=== PATIENT | female | born 1950 | race Caucasian/White ===

== ENCOUNTER → 2018-02-09 13:42 | Outpatient (CLI) | payer MEDICARE, OTHER, SELFPAY ==
--- NOTE | 2018-02-09 13:52 | BI_ITS ---
MAMMOGRAPHY - UNILATERAL DIAGNOSTIC: RIGHT BREAST REASON FOR EXAM: Female, 67 years old. Abnormal screening mammogram from outside institution. PERTINENT HISTORY: Personal history of breast cancer. Prior left lumpectomy and radiation therapy. TECHNIQUE: Digital unilateral breast lilbieth (3D mammographic acquisition) in the CC and MLO projections. 2-D mediolateral oblique (MLO) and craniocaudad (CC) views of both breasts were obtained. Exaggerated craniocaudad view as well as 90 degree lateral views were obtained. CAD: Full Field Digital Mammography with Computer Added Detection was performed. COMPARISON: Comparison is made with prior outside examination dated February 05, 2018. FINDINGS: Breast Composition: There are scattered areas of fibroglandular density. There are no dominant masses or suspicious calcifications. No suspicious abnormality is seen. No other significant abnormalities are identified. There has been no significant change since the prior study. BI/DIAG MAMM W/CAD, UNILAT IMPRESSION: Stable unilateral diagnostic mammogram. One year follow-up mammogram recommended. (A) ASSESSMENT CATEGORY: BIRADS Category 2: Benign. A letter regarding these results will be sent to the patient by the facility within 30 days. Approximately 10% of breast cancers are not detected by mammography. A normal mammogram should not delay biopsy of a clinically suspicious abnormality. Electronically Signed: Teofilo Shelton MD at 8:27 EDT Tel [phone], Service support ,
--- NOTE | 2018-02-09 13:52 | US_ITS ---
STUDY: ULTRASOUND BREAST - RIGHT REASON FOR EXAM: Female, 67 years old. Abnormal screening mammogram. TECHNIQUE: Axial and longitudinal images of the RIGHT breast were performed with a high resolution ultrasound transducer. COMPARISON: Comparison is made with prior mammogram done earlier in the day. FINDINGS: RIGHT Breast: The inferior half of the right breast was examined by ultrasound. There is mild dilatation of the retroareolar ducts. No solid or cystic mass lesion is seen. US/Breast Limited Unilateral IMPRESSION: Mildly dilated retroareolar ducts. ASSESSMENT CATEGORY: BIRADS Category 2: Benign. A letter regarding these results will be sent to the patient by the facility within 30 days. Electronically Signed: Teofilo Shelton MD at 8:17 EDT Tel [phone], Service support ,
== END ==
PROVIDERS: Family Provider Student in an Organized Health Care Education/Training Program; PCP Student in an Organized Health Care Education/Training Program; Visit Provider Nurse Practitioner
DX: C50.912 Malignant neoplasm of unspecified site of left female breast (principal)
CPT/HCPCS: 76642; 77061; 77065; G0279

== ENCOUNTER 2018-10-21 15:05 | Emergency (ER) | payer MEDICARE, OTHER, SELFPAY ==
[2018-10-21 15:08] VITALS: BP 139/91; PULSE 73; RESP 18; TEMP 36.6; O2SAT 95; BMI 32.8
--- NOTE | 2018-10-21 15:26 | CT_ITS ---
STUDY: CT BRAIN WITHOUT CONTRAST REASON FOR EXAM: Female, 68 years old. RADIATION DOSAGE (If Supplied By Facility): CTDIvol = ( 44.99 ) mGy, DLP = ( 762.36 ) mGycm TECHNIQUE: Transaxial CT imaging of the brain was performed without administration of intravenous contrast material. Individualized dose optimization techniques were used for this CT. COMPARISON: No relevant priors. FINDINGS: Normal soft tissue structures. Hyperostosis frontalis interna is noted. Normal size ventricles and extra-axial spaces for the patient's age. Normal white matter tracts of the cerebral hemispheres. Normal basal ganglia and thalami. Normal brainstem. Normal cerebellum. There is no intracranial hemorrhage. There are no findings of an acute ischemic infarction. Minimal residual thickening involving the posterior aspect of the left maxillary sinus CT/Brain/Head without Contrast IMPRESSION: Normal unenhanced CT scan of the brain. Electronically Signed: Tere Soria, at 15:57 EDT Tel , Service support ,
[2018-10-21] MEDS: Meclizine HCl 25 MG Tablet PO (15:30)
--- NOTE | 2018-10-21 15:35 | ED.DCSUM_ITS ---
- ER Visit Summary Date of Service: 10/21/18 Chief Complaint: Dizziness History of Present Illness: The patient is a 68 F with dizziness. This started suddenly yesterday when she woke up. It feels like the room is spinning. Worse with movement and better with rest. Associated with nausea. She also says her right ear hurts and she has ringing in her ears. Symptoms got better throughout the day and then recurred again today. The patient has a history of vertigo. Her last episode was 2 or 3 weeks ago and it lasted for 2 to 3 days. Patient had a mild headache and took some ibuprofen. No other medications. No other associated symptoms like visual changes, facial droop, speech changes, weakness. No trauma. Patient has a history of breast cancer and is in remission. Physical Examination: Afebrile and vital signs unremarkable. Patient alert and oriented. No acute distress. HEENT exam unremarkable. Head is atraumatic. Neck is nontender with good range of motion. Heart regular. Lungs clear. Cranial nerves grossly intact. Normal strength and sensation. Normal cerebellar testing. No nystagmus. Skin normal. Test Results: CT brain pending. Emergency Department Course and Treatment: Patient presents with vertigo. Symptoms are consistent with a peripheral etiology. Patient was treated with meclizine. Because of her age and history of breast cancer I will check a CT brain. CT was normal. On reevaluation, vertigo had resolved. Patient ambulated without issue. Will prescribe a short course of meclizine. Follow-up with ENT. Return for any new or worsening issues. Return for signs of stroke. Treatment Plan: As above Disposition: Discharge Impression: 1. Vertigo This note was generated with [email or web address] dictation software. It may contain incorrect words, spelling, and punctuation that were not noted in review of the chart prior to signing ED Disposition - Plan for ED Patient: Referrals: Keaton Cole DO [Primary Care Provider] -
--- NOTE | 2018-10-21 16:13 | ED.DEP ---
ED Disposition - Plan for ED Patient: Instructions: VERTIGO, Unspecified Prescriptions: Meclizine HCl 25 mg PO TID PRN PRN #20 tab PRN Reason: Vertigo Prescription Printed Referrals: Reinier Villar MD [STAFF PHYSICIAN] -
== END 2018-10-21 16:32 | disposition home or self-care (01) ==
LOC: ED 15:39
PROVIDERS: Emergency Provider Emergency Medicine; Family Provider Student in an Organized Health Care Education/Training Program; PCP Student in an Organized Health Care Education/Training Program
DX: R42 Dizziness and giddiness (principal)
CPT/HCPCS: 70450; 99283

== ENCOUNTER 2021-05-01 05:48 | Day surgery (SDC) | payer MEDICARE, OTHER, SELFPAY ==
[2021-05-01] VITALS (16 sets, daily range): BP systolic 55–126; BP diastolic 45–83; PULSE 61–85; RESP 16–18; TEMP 35.9–36.4; O2SAT 89–100; BMI 26.6
--- NOTE | 2021-05-01 06:24 | PCM.HP.STD ---
HPI - General HPI Narrative JET TORRE, is a 70 F who presents for screening colonoscopy. Her previous one was approximately 13 years ago. She is asymptomatic. No abdominal pain. No bright red blood per rectum. No melena. She has some intentional weight loss. Nothing unexpected. She has not experienced COVID-19. She has been vaccinated. She was able to successfully take the bowel preparation [facility] Medical History (Updated 04/25/21 @ 10:53 by Meryl Neely) Arthritis Back pain Cancer Costochondritis History of breast cancer Migraine headache Non-smoker Wears glasses Home Medications celecoxib 200 mg PO DAILY 09/05/14 [History Last Taken Unknown] cholecalciferol (vitamin D3) 2,000 unit PO DAILY 09/05/14 [History Last Taken Unknown] multivitamin with folic acid 1 tab PO DAILY 09/05/14 [History Last Taken Unknown] meclizine 25 mg PO TID PRN PRN #20 tab 10/21/18 [Rx Last Taken Unknown] calcium carbonate 500 mg calcium (1,250 mg) tablet 500 mg PO DAILY 10/08/19 [History Last Taken Unknown] omega-3 fatty acids 1,000 mg capsule 1,000 mg PO DAILY 10/08/19 [History Last Taken Unknown] turmeric 400 mg capsule 400 mg PO DAILY 10/08/19 [History Last Taken Unknown] aspirin [Aspir-81] 81 mg PO DAILY 04/25/21 [History Last Taken Unknown] Allergy/AdvReac Type Severity Reaction Status Date / Time amitriptyline Allergy Other Verified 05/01/21 06:23 anastrozole Allergy Other Verified 05/01/21 06:23 duloxetine Allergy Other Verified 05/01/21 06:23 gabapentin Allergy Other Verified 05/01/21 06:23 letrozole Allergy Other Verified 05/01/21 06:23 Family History Mother Cancer ovarian Surgical History S/P appendectomy S/P tonsillectomy Status post left breast lumpectomy Social History (Updated 10/08/19 @ 13:[address] Bernabe Burden MD) Smoking Status: Never smoker alcohol intake: never ROS Constitutional Constitutional: Reports systems reviewed and no addt'l complaints, except as documented Cardiovascular Cardiovascular: Denies chest pain Respiratory/Chest Respiratory/Chest: Denies shortness of breath at rest Gastrointestinal Gastrointestinal: Denies abdominal pain, change in bowel habits, hematochezia or melena Physical Exam Const alert, oriented x3 and no apparent distress General Appearance: cooperative and comfortable Eyes General Eye: normal appearance of both eyes Neck General: normal visual inspection Chest inspection of chest normal Resp Effort and Inspection: able to speak in complete sentences and symmetric chest movement Auscultation: clear to auscultation bilaterally Cardio regular rate and regular rhythm GI soft to palpation, non-tender and non-distended Extremity no calf tenderness Neuro oriented x3 Psych thought process normal Assessment & Plan Assessment/Plan (1) Encounter for screening for malignant neoplasm of colon: PLAN: The patient presents for screening colonoscopy today with possible biopsy or polypectomy as indicated. She presents via open access today. She is aware of the technique, benefit, risk, alternatives. She has had an opportunity to ask and have questions answered. We will proceed as noted. Bernabe Burden M.D., F.A.C.S.
[2021-05-01] MEDS: Lactated Ringers 1,000 ML 15 ML IV ×2 (06:29→07:25)
[2021-05-01] MEDS: Midazolam 5 MG/ML Syringe (06:36)
--- NOTE | 2021-05-01 07:05 | OP.CCLET_ITS ---
05/01/2021 Keaton Cole [address] [phone] Re : Colonoscopy procedure for Ne Torres Dear Dr. Cole This procedure was performed on Saturday, May 01, 2021. My impressions and recommendations are as follows: Impressions : - Non-thrombosed external hemorrhoids, non-thrombosed internal hemorrhoids and internal hemorrhoids that prolapse with straining, but spontaneously regress to the resting position (Grade II) found on digital rectal exam. - Diverticulosis in the sigmoid colon. - Tortuous colon. - No specimens collected. Recommendations : - Discharge patient to home. - Resume previous diet. - Continue present medications. - Repeat colonoscopy in 10 years for screening purposes. My findings are described in the full procedure note, which is enclosed. If I can be of further assistance, please feel free to contact me at Doctor phone number(s): Work: . Sincerely, Bernabe Burden MD 05/01/2021 7:04:34 AM This report has been signed electronically.
--- NOTE | 2021-05-01 07:05 | OP.COLON_ITS ---
Patient Name: Ne Torres Procedure Date: 05/01/2021 6:33 AM Date of : 1950 Age: 70 Procedure: Colonoscopy Indications: Screening for colorectal malignant neoplasm Providers: Bernabe Burden MD Medicines: Meperidine 100 mg IV, Midazolam 3 mg IV Patient Profile: Last Colonoscopy: more than 10 years ago. Complications: No immediate complications. Procedure: Pre-Anesthesia Assessment: - Prior to the procedure, a History and Physical was performed, and patient medications and allergies were reviewed. The patient's tolerance of previous anesthesia was also reviewed. The risks and benefits of the procedure and the sedation options and risks were discussed with the patient. All questions were answered, and informed consent was obtained. Prior Anticoagulants: The patient has taken aspirin, last dose was day of procedure. ASA Grade Assessment: II - A patient with mild systemic disease. After reviewing the risks and benefits, the patient was deemed in satisfactory condition to undergo the procedure. After I obtained informed consent, the scope was passed under direct vision. Throughout the procedure, the patient's blood pressure, pulse, and oxygen saturations were monitored continuously. The colonoscope was introduced through the anus and advanced to the cecum, identified by appendiceal orifice and ileocecal valve. The colonoscopy was performed without difficulty. The patient tolerated the procedure well. The quality of the bowel preparation was good. The ileocecal valve and the appendiceal orifice were photographed. Moderate Sedation: Moderate (conscious) sedation was personally administered by the endoscopist. The following parameters were monitored: oxygen saturation, heart rate, blood pressure, and response to care. Total physician intraservice time was 15 minutes. Scope In: 6:46:29 AM Scope Withdrawal Time 0 hours 7 minutes 49 seconds Scope Out: 6:59:52 AM Total Procedure Duration Time 0 hours 13 minutes 23 seconds Findings: The digital rectal exam findings include non-thrombosed external hemorrhoids, non-thrombosed internal hemorrhoids and internal hemorrhoids that prolapse with straining, but spontaneously regress to the resting position (Grade II). Multiple diverticula were found in the sigmoid colon. The left colon was moderately tortuous. Advancing the scope required applying abdominal pressure. Impression: - Non-thrombosed external hemorrhoids, non-thrombosed internal hemorrhoids and internal hemorrhoids that prolapse with straining, but spontaneously regress to the resting position (Grade II) found on digital rectal exam. - Diverticulosis in the sigmoid colon. - Tortuous colon. - No specimens collected. Recommendation: - Discharge patient to home. - Resume previous diet. - Continue present medications. - Repeat colonoscopy in 10 years for screening purposes. Procedure Code(s): --- Professional --- 26257, Colonoscopy, flexible; diagnostic, including collection of specimen(s) by brushing or washing, when performed (separate procedure) 93056, 59, Moderate sedation services provided by the same physician or other qualified health childcare administrator performing the diagnostic or therapeutic service that the sedation supports, requiring the presence of an independent trained observer to assist in the monitoring of the patient's level of consciousness and physiological status; initial 15 minutes of intraservice time, patient age 5 years or older Diagnosis Code(s): --- Professional --- Z12.11, Encounter for screening for malignant neoplasm of colon K64.1, Second degree hemorrhoids K64.4, Residual hemorrhoidal skin tags K57.30, Diverticulosis of large intestine without perforation or abscess without bleeding Q43.8, Other specified congenital malformations of intestine CPT copyright 2017 [employer]. All rights reserved. The codes documented in this report are preliminary and upon center maker hand review may be revised to meet current compliance requirements. Bernabe Burden MD 05/01/2021 7:04:34 AM This report has been signed electronically. Number of Addenda: 0 Note Initiated On: 05/01/2021 6:33 AM
== END 2021-05-01 23:59 | disposition home or self-care (01) ==
LOC: EN 05:49 → AC 05:51
PROVIDERS: PCP Student in an Organized Health Care Education/Training Program; Referring Provider Student in an Organized Health Care Education/Training Program; Visit Provider Surgery
PROC: 0DJD8ZZ Inspection of Lower Intestinal Tract, Via Natural or Artificial Opening Endoscopic (ICD-10-PCS; CPT 45378; principal; 2021-05-01 06:55)
DX: Z12.11 Encounter for screening for malignant neoplasm of colon (principal); K64.1 Second degree hemorrhoids; K57.30 Diverticulosis of large intestine without perforation or abscess without bleeding; K64.4 Residual hemorrhoidal skin tags; Z85.3 Personal history of malignant neoplasm of breast; G43.909 Migraine, unspecified, not intractable, without status migrainosus; Z79.899 Other long term (current) drug therapy; Z79.82 Long term (current) use of aspirin; M19.90 Unspecified osteoarthritis, unspecified site; Q43.8 Other specified congenital malformations of intestine
CPT/HCPCS: 99152; 99153; J7120

== ENCOUNTER 2021-05-08 08:50 | Outpatient (CLI) | payer MEDICARE, OTHER, SELFPAY ==
--- NOTE | 2021-05-08 08:59 | BI_ITS ---
MAMMOGRAPHY - UNILATERAL DIAGNOSTIC: RIGHT BREAST REASON FOR EXAM: Female, 70 years old. Abnormal screening mammogram. PERTINENT HISTORY: Personal history of breast cancer. Prior left lumpectomy. TECHNIQUE: Compression magnification views of the right breast were obtained. CAD: Full Field Digital Mammography with Computer Added Detection was performed. COMPARISON: Comparison is made with prior outside examination dated 04/16/2021. FINDINGS: Breast Composition: The breasts are heterogeneously dense, which may obscure small masses. No cluster of microcalcification is seen. Routine mammographic follow-up is recommended. No other significant abnormalities are identified. BI/DIAG MAMM W/CAD, UNILAT IMPRESSION: Stable unilateral diagnostic mammogram. One year follow-up mammogram recommended. (A) ASSESSMENT CATEGORY: BIRADS Category 2: Benign. A letter regarding these results will be sent to the patient by the facility within 30 days. Approximately 10% of breast cancers are not detected by mammography. A normal mammogram should not delay biopsy of a clinically suspicious abnormality. Electronically Signed: Teofilo Shelton MD at 10:11 EST , Service support ,
== END 2021-05-08 23:59 | disposition short-term general hospital (02) ==
LOC: OPBI 08:51
PROVIDERS: PCP Student in an Organized Health Care Education/Training Program; Visit Provider Nurse Practitioner
DX: R92.8 Other abnormal and inconclusive findings on diagnostic imaging of breast (principal); Z85.3 Personal history of malignant neoplasm of breast
CPT/HCPCS: 77065